=== PATIENT | male | born 1945 | race Caucasian/White ===

== ENCOUNTER → 2017-08-24 | Outpatient (CLI) | payer MEDICARE, BC ==
[~2017-08-24] MED LIST: ANDROGEL1.62% TOP; ASPIRIN 32325 MG/TAB PO; ATACAND32 MG PO; BROVANA15 MCG/2 M IH; BYSTOLIC5 MG PO; CEFTIN 250250 MG/TAB PO; CRESTOR 10MG10 MG PO; FISH OIL 1000MG1 CAP PO; HCTZ; INCRUSE EL62.5 MCG/A IH; LIPITOR 40MG TA40 MG PO; MULTIPLE VITAMI1 CAP PO; NORVASC 5MG5 MG/TAB PO; POTASSIUM CH2 MEQ/ML PO; PREDNISONE10 MG PO; PRILOSEC 20MG20 MG PO; PROSCAR PO; PULMICORT0.5 MG/2 M IH; SPIRIVA18 MCG IH; VITAMIN C500 MG PO; VITAMIN D31000 I1 PO; WELCHOL625 MG PO; ZITHROMAX 250M250 MG PO
[2017-08-24 11:40] LABS: ARTERIAL BLD GAS O2 SATURATION 94.9 % (92-100); ARTERIAL BLD GAS TCO2 CT 32.8; ARTERIAL BLOOD GAS BASE EXCESS 4.4 (-2-2); ARTERIAL BLOOD GAS HCO3 31.1 meq/L (22-26); ARTERIAL BLOOD GAS PHT 7.38 C (7.35-7.45); ARTERIAL BLOOD GAS PO2 74.3 mmHg (80-100); ARTERIAL BLOOD GAS PO2T 74.3 (80-100); ARTERIAL BLOOD GAS pH 7.38 (7.35-7.45); OXYHEMOGLOBIN 93.6 %
[2017-08-24 11:41] LABS: ATS? YES
== END ==
LOC: COL.PUL 08-18 11:30
PROVIDERS: Internal Medicine Pulmonary Disease
DX: J44.1 Chronic obstructive pulmonary disease with (acute) exacerbation (principal)